=== PATIENT | male | born 1945 | race Caucasian/White ===

== ENCOUNTER 2017-11-04 21:02 | Emergency (ER) | payer OTHER ==
[~2017-11-04] VITALS: Ht 165.1 cm; Wt 61.0 kg
[2017-11-04 21:11] VITALS: Ht 165.1 cm; Wt 61.0 kg
[2017-11-05 00:23] VITALS: BP 143/75
== END 2017-11-05 00:23 | disposition home or self-care (01) ==
LOC: ED 21:02
DX: L03.114 Cellulitis of left upper limb (principal); F17.210 Nicotine dependence, cigarettes, uncomplicated; Z88.1 Allergy status to other antibiotic agents
CPT/HCPCS: 90714; J2001